=== PATIENT | female | born 1945 | race Caucasian/White ===

== ENCOUNTER 2017-06-13 08:38 | Day surgery (SDC) | payer OTHER, MEDICARE ==
[2017-06-12 16:08] VITALS: BMI 20.3
[2017-06-13 10:49] VITALS: TEMP 97.8
[2017-06-13 11:26] VITALS: BP 144/71; PULSE 95
== END 2017-06-13 11:20 | disposition home or self-care (01) ==
LOC: FASU-ENDO 08:38
PROVIDERS: ATTEND Internal Medicine Gastroenterology
PROC: 0DB68ZX Excision of Stomach, Via Natural or Artificial Opening Endoscopic, Diagnostic (ICD-10-PCS; principal; 2017-06-13 09:57)
DX: D50.0 Iron deficiency anemia secondary to blood loss (chronic) (principal); K31.811 Angiodysplasia of stomach and duodenum with bleeding